=== PATIENT | female | born 1945 ===

== ENCOUNTER 2018-11-09 07:46 | Outpatient (CLI) | payer MEDICARE | END 2018-11-09 07:47 | disposition home or self-care (01) | LOC: C.LAB 07:46 | DX: E55.9 Vitamin D deficiency, unspecified (principal); M32.9 Systemic lupus erythematosus, unspecified ==

== ENCOUNTER 2018-11-24 07:30 | Outpatient (CLI) | payer MEDICARE | END 2018-11-24 07:31 | disposition home or self-care (01) | LOC: C.LAB 07:30 | DX: M06.9 Rheumatoid arthritis, unspecified (principal); N39.0 Urinary tract infection, site not specified; E55.9 Vitamin D deficiency, unspecified; E78.5 Hyperlipidemia, unspecified ==